=== PATIENT | female | born 1960 | race Caucasian/White ===

== ENCOUNTER → 2018-06-07 | Outpatient (CLI) | payer MEDICARE, OTHER ==
[~2018-06-07] MED LIST: ASPI81EC PO; Alpha Lipoic A100 MG PO; BUPR150ER PO; CEPH500 PO; Cerefolin Tabl1 EACH IM; Fish Oil500 M1 PO; HYDACE5 PO; IBUP800 PO; LEVSOD125 PO; LEVSOD137 PO; OXYB5 PO; Percocet 5-3251 EACH PO; RANI150 PO; REBIF REBI44 MCG/0.5 SQ; TYSABRI; Vitamin D2000 UNIT PO; [UNRECOGNIZED DRUG - OTHER]; [UNRECOGNIZED DRUG - OTHER] PO
[2018-06-07 10:58] LABS: Source, Urine Clean Catch
[2018-06-07 12:39] LABS: Appearance, Urine Hazy (Clear); Bilirubin, Urine Neg (Neg); Blood, Urine 1+ (Neg); Color, Urine Yellow (P-Yellow); Glucose Qualitative, Urine Neg (Neg); Ketones, Urine Neg (Neg); Leukocyte Esterase, Urine 3+ (Neg); Nitrite, Urine Neg (Neg); Protein, Urine Neg (Neg); Specific Gravity, Urine 1.015 (1.003-1.022); Urobilinogen, Urine NORM (Normal)
[2018-06-07 13:02] LABS: Bacteria Few /hpf; Red Blood Cells, Urine 0-2 /hpf (0-2); Squamous Epithelial Cells Mod /hpf (Few); White Blood Cells, Urine 25-50 /hpf (0-5)
[2018-06-07 13:04] LABS: Mucus Light (0-Heavy)
== END ==
LOC: LAB SHORT 10:57 → LAB 10:57 → LAB FUT 06-07 10:35 → EDSTATUS 06-07 10:35
PROVIDERS: Internal Medicine
DX: R30.0 Dysuria (principal)
CPT/HCPCS: 81001; 87086; 87147; 87184

== ENCOUNTER → 2018-10-12 | Outpatient (CLI) | payer MEDICARE, OTHER ==
[2018-10-13 15:06] LABS: HPV 16 Negative (Negative); HPV 18 Negative (Negative); HPV OTHER HR TYPES Negative (Negative)
== END | disposition home or self-care (01) ==
LOC: LAB 10:15 → LAB SHORT 10:15
PROVIDERS: Internal Medicine
DX: Z12.4 Encounter for screening for malignant neoplasm of cervix (principal)
CPT/HCPCS: 87624; G0145

== ENCOUNTER 2019-01-10 00:24 | Day surgery (SDC) | payer MEDICARE, OTHER ==
[2019-01-10] MEDS ORDERED: LEVOXYL88 MCG PO (17:02)
[2019-01-10] MEDS ORDERED: Fluvoxamine Ma100 MG PO (17:04)
[2019-01-10] MEDS ORDERED: VITAMIN D5000 UNI1 PO (17:32)
[2019-01-10] MEDS ORDERED: CYAN1000I IM (17:33)
[2019-01-10] MEDS ORDERED: CALCIUM PO (17:34)
[2019-01-10] MEDS ORDERED: THERA1 EACH PO (17:35)
== END 2019-01-10 16:15 | disposition home or self-care (01) ==
LOC: ATC 00:24
DX: G35 Multiple sclerosis (principal); E55.9 Vitamin D deficiency, unspecified; F32.9 Major depressive disorder, single episode, unspecified; Z79.899 Other long term (current) drug therapy; Z88.5 Allergy status to narcotic agent; Z88.2 Allergy status to sulfonamides; Z88.0 Allergy status to penicillin; Z88.8 Allergy status to other drugs, medicaments and biological substances; Z87.891 Personal history of nicotine dependence
CPT/HCPCS: 96365; J2930

== ENCOUNTER 2019-01-11 00:21 | Day surgery (SDC) | payer MEDICARE, OTHER ==
[~2019-01-11 00:21] MED LIST changes: +CALCIUM PO; +CYAN1000I IM; +Fluvoxamine Ma100 MG PO; +LEVOXYL88 MCG PO; +THERA1 EACH PO; +VITAMIN D5000 UNI1 PO
== END 2019-01-11 15:03 | disposition home or self-care (01) ==
LOC: ATC 00:21
DX: G35 Multiple sclerosis (principal); E55.9 Vitamin D deficiency, unspecified; Z79.899 Other long term (current) drug therapy; Z88.5 Allergy status to narcotic agent; Z88.2 Allergy status to sulfonamides; Z88.0 Allergy status to penicillin; Z88.8 Allergy status to other drugs, medicaments and biological substances; Z87.891 Personal history of nicotine dependence
CPT/HCPCS: 96365; J2930

== ENCOUNTER → 2019-11-01 | Outpatient (CLI) | payer MEDICARE, OTHER ==
[2019-11-01 08:05] LABS: Source, Urine Clean Catch
[2019-11-01 10:46] LABS: Bilirubin, Urine Neg (Neg); Blood, Urine 4+ (Neg); Glucose Qualitative, Urine Neg (Neg); Ketones, Urine Neg (Neg); Leukocyte Esterase, Urine 3+ (Neg); Nitrite, Urine Pos (Neg); Protein, Urine 2+ (Neg); Urobilinogen, Urine NORM (Normal)
[2019-11-01 11:46] LABS: Appearance, Urine Turbid (Clear); Color, Urine Yellow (P-Yellow)
[2019-11-01 11:50] LABS: White Blood Cells, Urine TNTC /hpf (0-5)
[2019-11-01 11:51] LABS: Bacteria Many /hpf; Squamous Epithelial Cells Rare /hpf (Few)
== END | disposition home or self-care (01) ==
LOC: LAB 08:04 → LAB SHORT 08:04 → LAB FUT 10-31 08:05
PROVIDERS: Internal Medicine
DX: N39.0 Urinary tract infection, site not specified (principal)
CPT/HCPCS: 81001

== ENCOUNTER → 2019-12-25 | Outpatient (CLI) | payer MEDICARE, OTHER ==
[2019-12-25 09:20] LABS: Source, Urine Clean Catch
[2019-12-25 10:24] LABS: Appearance, Urine Turbid (Clear); Bilirubin, Urine Neg (Neg); Blood, Urine 4+ (Neg); Color, Urine Yellow (P-Yellow); Glucose Qualitative, Urine Neg (Neg); Ketones, Urine Neg (Neg); Leukocyte Esterase, Urine 3+ (Neg); Nitrite, Urine Neg (Neg); Protein, Urine 2+ (Neg); Urobilinogen, Urine NORM (Normal)
[2019-12-25 10:36] LABS: White Blood Cells, Urine TNTC /hpf (0-5)
[2019-12-25 10:37] LABS: Bacteria Many /hpf; Squamous Epithelial Cells Rare /hpf (Few)
== END | disposition home or self-care (01) ==
LOC: LAB SHORT 09:14 → LAB 09:14
PROVIDERS: Internal Medicine
DX: N39.0 Urinary tract infection, site not specified (principal)
CPT/HCPCS: 81001; 87077; 87086; 87147; 87186

== ENCOUNTER → 2020-03-12 | Outpatient (CLI) | payer MEDICARE, OTHER ==
[2020-03-12 13:50] LABS: Source, Urine Clean Catch
[2020-03-12 17:32] LABS: Appearance, Urine Cloudy (Clear); Bilirubin, Urine Neg (Neg); Blood, Urine 3+ (Neg); Color, Urine Yellow (P-Yellow); Glucose Qualitative, Urine Neg (Neg); Ketones, Urine Neg (Neg); Leukocyte Esterase, Urine 3+ (Neg); Nitrite, Urine Pos (Neg); Protein, Urine 3+ (Neg); Urobilinogen, Urine NORM (Normal)
[2020-03-12 18:12] LABS: White Blood Cells, Urine 25-50 /hpf (0-5)
[2020-03-12 18:13] LABS: Bacteria Many /hpf; Red Blood Cells, Urine 25-50 /hpf (0-2); Squamous Epithelial Cells Rare /hpf (Few)
== END | disposition home or self-care (01) ==
LOC: LAB 09:15 → LAB SHORT 09:15
PROVIDERS: Internal Medicine
DX: R30.0 Dysuria (principal)
CPT/HCPCS: 81001; 87077; 87086; 87186

== ENCOUNTER → 2020-07-22 | Outpatient (CLI) | payer MEDICARE, OTHER ==
[2020-07-22 16:45] LABS: Appearance, Urine Cloudy (Clear); Bilirubin, Urine Neg (Neg); Blood, Urine 3+ (Neg); Color, Urine Yellow (P-Yellow); Glucose Qualitative, Urine Neg (Neg); Ketones, Urine Neg (Neg); Leukocyte Esterase, Urine 3+ (Neg); Nitrite, Urine Pos (Neg); Protein, Urine 3+ (Neg); Urobilinogen, Urine NORM (Normal)
[2020-07-22 17:03] LABS: Bacteria Many /hpf; Squamous Epithelial Cells Not Seen /hpf (Few); White Blood Cells, Urine TNTC /hpf (0-5)
== END | disposition home or self-care (01) ==
LOC: LAB SHORT 10:33 → LAB 10:33
PROVIDERS: Internal Medicine
DX: R30.0 Dysuria (principal)
CPT/HCPCS: 81001; 87077; 87086; 87186

== ENCOUNTER → 2020-12-13 | Outpatient (CLI) | payer MEDICARE, OTHER ==
[2020-12-14 07:09] LABS: IMMUNOGLOBULIN A, QN, SERUM 170 mg/dL (87-352); IMMUNOGLOBULIN G, QN, SERUM 486 mg/dL (586-1602); IMMUNOGLOBULIN M, QN, SERUM 22 mg/dL (26-217)
== END | disposition home or self-care (01) ==
LOC: LAB SHORT 11:44 → LAB 11:44
PROVIDERS: Psychiatry & Neurology Neurology
DX: G35 Multiple sclerosis (principal); N31.0 Uninhibited neuropathic bladder, not elsewhere classified; E55.9 Vitamin D deficiency, unspecified; R53.83 Other fatigue; R26.89 Other abnormalities of gait and mobility
CPT/HCPCS: 36415; 82784

== ENCOUNTER → 2021-04-24 | Outpatient (CLI) | payer MEDICARE, OTHER ==
[2021-04-25 08:11] LABS: IMMUNOGLOBULIN A, QN, SERUM 161 mg/dL (87-352); IMMUNOGLOBULIN G, QN, SERUM 487 mg/dL (586-1602); IMMUNOGLOBULIN M, QN, SERUM 21 mg/dL (26-217)
== END | disposition home or self-care (01) ==
LOC: LAB SHORT 09:49
PROVIDERS: Psychiatry & Neurology Neurology
DX: G35 Multiple sclerosis (principal)
CPT/HCPCS: 82784

== ENCOUNTER → 2022-01-23 | Outpatient (CLI) | payer MEDICARE, OTHER | END | disposition home or self-care (01) | LOC: LAB 09:57 → LAB SHORT 09:57 | DX: N39.0 Urinary tract infection, site not specified (principal) | CPT/HCPCS: 87086; 87147 ==

== ENCOUNTER → 2022-08-18 | Outpatient (CLI) | payer MEDICARE, OTHER ==
[2022-08-18 17:17] LABS: Body Fluid Crystals NEG (NEGATIVE)
[2022-08-18 17:39] LABS: RBC Count, Synovial Fluid 20000 /mm3 (0-0)
[2022-08-18 17:40] LABS: WBC Count, Synovial Fluid 6080 /mm3 (0-180)
[2022-08-18 19:43] LABS: Lymphs, Synovial Fluid 16 % (0-15); Monocytes/Macrophages, Synovia 12 % (0-65); Neutrophils, Synovial Fluid 72 % (0-24)
[2022-08-18 19:44] LABS: Appearance, Synovial Fluid Cloudy (Clear); Color, Synovial Fluid Dark Yellow (None-P Yel)
== END | disposition home or self-care (01) ==
LOC: LAB SHORT 16:00
PROVIDERS: Internal Medicine
DX: M25.562 Pain in left knee (principal); M25.462 Effusion, left knee
CPT/HCPCS: 89051; 89060

== ENCOUNTER → 2024-03-21 | Outpatient (CLI) | payer MEDICARE, OTHER ==
[~2024-03-21] MED LIST changes: +Acetaminophen650 M1 PO; +BACLOFEN5 M1 PO; +CELE100 PO; +IBUP400 PO; +OCRELIZUMAB IV; +PROBIOTICS1 EACH PO; +VITAMIN B121000 MCG PO
[2024-04-03 12:20] LABS: HPV SOURCE Not Provided
[2024-04-03 12:22] LABS: HPV HIGH RISK BY TMA Not Detected
== END ==
LOC: LAB 15:39 → LAB SHORT 15:39
PROVIDERS: Internal Medicine
DX: Z12.4 Encounter for screening for malignant neoplasm of cervix (principal)
CPT/HCPCS: 87624; G0123

== ENCOUNTER 2024-04-07 14:50 | Inpatient (IN) | payer MEDICARE, OTHER ==
[~2024-04-07] VITALS: Ht 162.6 cm; Wt 61.2 kg
[~2024-04-07 14:50] MED LIST changes: -BUPR150ER PO; +BUPROPION XL150 M1 PO; +EUTHYROX125 MCG PO; +Enoxaparin 40 MG/0.4 ML SYR SC SCH; -LEVOXYL88 MCG PO
[2024-04-07] MEDS ORDERED: Acetaminophen 325 MG TABLET PO ONE ×2 (16:20→16:50)
[2024-04-07 16:56] LABS: BASOPHILS ABSOLUTE AUTO 0.04 K/mm3 (0.00-0.23); BASOPHILS PERCENT AUTO 0 % (0-2); EOSINOPHILS ABSOLUTE AUTO 0.02 K/mm3 (0.00-0.68); EOSINOPHILS PERCENT AUTO 0 % (0-6); Hematocrit 36.1 % (33.0-51.0); Hemoglobin 13.1 g/dL (11.5-16.0); IMMATURE GRAN ABSOLUTE AUTO 0.06 K/mm3 (0.00-0.10); IMMATURE GRAN PERCENT AUTO 1 % (0-1); LYMPHOCYTES ABSOLUTE AUTO 0.46 K/mm3 (0.84-5.20); LYMPHOCYTES PERCENT AUTO 5 % (21-46); MONOCYTES ABSOLUTE AUTO 1.05 K/mm3 (0.16-1.47); MONOCYTES PERCENT AUTO 11 % (4-13); Mean Corpuscular HGB 32.6 pg (26.0-34.0); Mean Corpuscular HGB Conc 36.3 g/dL (31.5-36.5); Mean Corpuscular Volume 90 fL (80-100); Mean Platelet Volume 9.8 fL (9.1-12.4); NEUTROPHILS ABSOLUTE AUTO 8.21 K/mm3 (1.96-9.15); NEUTROPHILS PERCENT AUTO 83 % (41-73); Platelet Count 178 K/mm3 (150-400); RDW Coefficient Variation 12.1 % (11.7-14.2); RDW Standard Deviation 39.8 fL (35.1-46.3); Red Blood Cell Count 4.02 M/mm3 (3.80-5.20); White Blood Cell Count 9.84 K/mm3 (4.00-11.30)
[2024-04-07 17:12] LABS: Albumin, Blood 3.2 g/dL (3.4-5.0); Albumin/Globulin Ratio 1.2 (0.8-1.8); Bilirubin, Total 1.5 mg/dL (0.1-1.0); Bun/Creatinine Ratio 17.8 (12.0-20.0); Calcium, Blood 8.4 mg/dL (8.5-10.1); Creatinine, Blood 0.45 mg/dL (0.40-1.00); Globulin, Blood 2.7 g/dL (2.2-4.0); Potassium, Blood 2.9 mmol/L (3.5-5.5); Total Protein, Blood 5.9 g/dL (6.4-8.2)
[2024-04-07 17:41] LABS: Source, Urine Straight Cath
[2024-04-07 17:48] LABS: Appearance, Urine Hazy (Clear); Bilirubin, Urine Neg (Neg); Blood, Urine 2+ (Neg); Color, Urine Yellow (P-Yellow); Glucose Qualitative, Urine Neg (Neg); Ketones, Urine Neg (Neg); Leukocyte Esterase, Urine 3+ (Neg); Nitrite, Urine Pos (Neg); Protein, Urine 1+ (Neg); Urobilinogen, Urine NORM (Normal); pH, Urine 6.5 (5.0-8.0)
[2024-04-07 18:02] LABS: Bacteria Many /hpf; Squamous Epithelial Cells Few /hpf (Few); White Blood Cells, Urine 50-100 /hpf (0-5)
[2024-04-07] MEDS ORDERED: CefTRIAXone Sodium 1,000 MG in NS 100 ML IV ONE (18:05)
[2024-04-07] MEDS ORDERED: NS 1,000 ML IV SCH ×2 (18:30→23:10)
[2024-04-07 19:30] LABS: Influenza A, PCR NEGATIVE (NEGATIVE); Influenza B, PCR NEGATIVE (NEGATIVE); Resp Syncytial Virus, PCR NEGATIVE (NEGATIVE); SARS-Cov-2 (COVID-19) PCR, MMC NEGATIVE (NEGATIVE)
[2024-04-07] MEDS ORDERED: FLUVOXAMINE MA100 MG PO (22:31)
[2024-04-07] MEDS ORDERED: HYDROCODONE-AC1 EA19 PO (22:31)
[2024-04-07] MEDS ORDERED: OMEP20ER PO (22:33)
[2024-04-07] MEDS ORDERED: MODAFINIL100 M4 PO (22:34)
[2024-04-07] MEDS ORDERED: ESTRADIOL42.5 GM VAG (22:35)
[2024-04-07 22:44] VITALS: BP 152/73
[2024-04-07] MEDS ORDERED: Ondansetron HCl 2 MG / ML 2ML Vial IV PRN (23:10)
[2024-04-07] MEDS ORDERED: FLU VACC TS2024-25(6MOS UP)/PF 45 MCG/0.5 ML SYRINGE IM ONE (23:10)
[2024-04-07] MEDS ORDERED: Acetaminophen 325 MG TABLET PO PRN (23:15)
[2024-04-07] MEDS ORDERED: Potassium Chl 20MEQ/Water100ML 100 ML IV SCH (23:20)
[2024-04-07 23:48] LABS: Magnesium, Blood 1.5 mg/dL (1.6-2.4); Phosphorus, Blood 2.3 mg/dL (2.5-4.9)
[2024-04-08] MEDS ORDERED: Magnesium Sulf 2 GM/Water 50ML 50 ML IV STA (00:55)
[2024-04-08] MEDS ORDERED: Potassium Phosphate Dibasic 20 MM in Dextrose 5% 500 ML IV STA (00:57)
--- NOTE | 2024-04-08 01:26 | NUR ---
THIS BREAK NURSE RECEIVED A T-ORDER FROM ON-CALL HOSPITALIST : STRAIGHT CATH NOW, AND RE-BLADDER SCAN IN 6HRS. ORDER ENTERED TO [facility] [employer]. INTERVENTIONAL RADIOLOGIST NURSE NOTIFIED. PT STRAIGHT CATHS AT HOME 3-4 XDAY. PT REPORTS STRAIGHT CATHING FOR >3YRS. BLADDER SCAN WAS DONE PRIOR CONTACTING THE PROVIDER, PT UNABLE TO VOID ON A BEDPAN. BLADDER SCAN AFTER ATTEMPT TO URINATE:727MLS.
--- NOTE | 2024-04-08 02:40 | NUR ---
STRAIGHT CATH DONE @ 0200. 800 ML OF YELLOW URINE COLLECTED.
--- NOTE | 2024-04-08 03:47 | NUR ---
@9489 by the bedside.
--- NOTE | 2024-04-08 05:01 | NUR ---
SHIFT SUMMARY 63 YR F ADMITTED THIS SHIFT FOR UTI. FULL CODE. NO ACUTE CHANGES THIS SHIFT. PT IS A&O X 4, PLEASANT, AND COOPERATIVE WITH CARE. SHE IS CURRENTLY RECEIVING IV POTASSIUM, SODIUM, AND MAGNESIUM. PT HAS A HX OF MS AND AMBULATES W/ A FWW AT BASELINE. HOWEVER, SHE IS UNABLE TO AMBULATE AT THIS TIME DUE TO WEAKNESS. PT HAS SEVERE URINARY RETENTION AND SELF CATHS 3 X DAILY AT BASELINE. BLADDER SCAN THIS SHIFT SHOWED >700 AND STRAIGHT CATH YEILDED 800 ML OF YELLOW URINE. PT STATES SHE CAN FEEL WHEN SHE NEEDS TO BE CATHED AND IT BECOMES UNCOMFORTABLE FOR HER. BED IN LOW POSITION AND CALL LIGHT IN REACH.
[2024-04-08 05:20] LABS: BASOPHILS ABSOLUTE AUTO 0.04 K/mm3 (0.00-0.23); BASOPHILS PERCENT AUTO 1 % (0-2); EOSINOPHILS ABSOLUTE AUTO 0.02 K/mm3 (0.00-0.68); EOSINOPHILS PERCENT AUTO 0 % (0-6); Hematocrit 33.5 % (33.0-51.0); Hemoglobin 11.9 g/dL (11.5-16.0); IMMATURE GRAN ABSOLUTE AUTO 0.04 K/mm3 (0.00-0.10); IMMATURE GRAN PERCENT AUTO 1 % (0-1); LYMPHOCYTES ABSOLUTE AUTO 0.98 K/mm3 (0.84-5.20); LYMPHOCYTES PERCENT AUTO 12 % (21-46); MONOCYTES ABSOLUTE AUTO 0.94 K/mm3 (0.16-1.47); MONOCYTES PERCENT AUTO 11 % (4-13); Mean Corpuscular HGB 32.5 pg (26.0-34.0); Mean Corpuscular HGB Conc 35.5 g/dL (31.5-36.5); Mean Corpuscular Volume 92 fL (80-100); Mean Platelet Volume 10.6 fL (9.1-12.4); NEUTROPHILS ABSOLUTE AUTO 6.39 K/mm3 (1.96-9.15); NEUTROPHILS PERCENT AUTO 76 % (41-73); Platelet Count 155 K/mm3 (150-400); RDW Coefficient Variation 12.1 % (11.7-14.2); RDW Standard Deviation 40.6 fL (35.1-46.3); Red Blood Cell Count 3.66 M/mm3 (3.80-5.20); White Blood Cell Count 8.41 K/mm3 (4.00-11.30)
[2024-04-08 05:51] LABS: Albumin, Blood 2.7 g/dL (3.4-5.0); Albumin/Globulin Ratio 1.1 (0.8-1.8); Bilirubin, Total 1.1 mg/dL (0.1-1.0); Bun/Creatinine Ratio 16.1 (12.0-20.0); Calcium, Blood 8.2 mg/dL (8.5-10.1); Creatinine, Blood 0.44 mg/dL (0.40-1.00); Globulin, Blood 2.4 g/dL (2.2-4.0); Potassium, Blood 3.1 mmol/L (3.5-5.5); Total Protein, Blood 5.1 g/dL (6.4-8.2)
[2024-04-08 05:53] VITALS: BP 143/75
[2024-04-08 08:08] VITALS: BP 146/74
[2024-04-08] MEDS ORDERED: HYDROCODONE-AC1 EA10 PO (09:32)
[2024-04-08] MEDS ORDERED: OCREVUS ZUNOVO23 ML IV (09:34)
[2024-04-08] MEDS ORDERED: Baclofen 10 MG Tab PO PRN (09:35)
[2024-04-08] MEDS ORDERED: CELEBREX200 MG PO (09:58)
[2024-04-08] MEDS ORDERED: Calcium Carbonate 500 MG Tab Chew PO SCH (10:09)
[2024-04-08] MEDS ORDERED: Levothyroxine Sodium 0.125 MG Tab PO SCH (10:10)
[2024-04-08] MEDS ORDERED: Multivitamins 1 Tab PO SCH (10:11)
[2024-04-08] MEDS ORDERED: Omeprazole 20 MG CapCR PO SCH (10:13)
[2024-04-08] MEDS ORDERED: Cholecalciferol 1000 Unit Tablet (=25MCG) PO SCH (10:13)
[2024-04-08] MEDS ORDERED: buPROPion HCL 150 MG TAB.SR.12H PO SCH (11:03)
[2024-04-08] MEDS ORDERED: Modafinil 200 MG Tab PO SCH (11:05)
[2024-04-08] MEDS ORDERED: Modafinil 200 MG Tab PO PRN (11:10)
[2024-04-08] MEDS ORDERED: FLUVOXAMINE 100 MG PO SCH (11:13)
[2024-04-08 11:49] LABS: Bun/Creatinine Ratio 17.4 (12.0-20.0); Calcium, Blood 8.4 mg/dL (8.5-10.1); Creatinine, Blood 0.46 mg/dL (0.40-1.00); Magnesium, Blood 2.2 mg/dL (1.6-2.4); Phosphorus, Blood 3.2 mg/dL (2.5-4.9); Potassium, Blood 3.3 mmol/L (3.5-5.5)
[2024-04-08] MEDS ORDERED: Potassium Chloride 20 MEQ TabCR PO ONE (14:00)
--- NOTE | 2024-04-08 15:07 | NUR ---
PHYSICIAN CONTACT INTERRUPTED PATIENT DRINKING FIREBALL WHISKEY. PATIENT IN ROOM, ADMITTED TO BRINGING IN TO HER. BOTH WERE EDUCATED ON THE RISKS OF CONSUMING ALCOHOL WHILE HOSPITALIZED AND EDUCATED IT WAS AGAINST POLICY TO ALLOW SUBSTANCES ON PROPERTY. WAS MADE AWARE THAT IF IT HAPPENED AGAIN HE WOULD BE ESCORTED OUT BY SECURTIY AND WOULDN'T BE ALLOWED BACK DURING THIS HOSPITALIZATION. PATIENT APOLOGIZED AND BOTH STATED THERE WAS NO MORE ALCOHOL PRESENT AND THAT SHE HAD ONLY DRANK THE ONE 50ML BOTTLE. CHARGES MADE AWARE, DOC MADE AWARE. DOC STATED TO MONITOR FOR ALCOHOL WITHDRAWL SYMPTOMS AND IF THERE WAS A CONCERN TO IMPLEMENT CIWA PROTOCOL. NO CHANGE TO PATIENT MENTATION AT THIS TIME.
[2024-04-08 15:27] VITALS: BP 121/85
--- NOTE | 2024-04-08 15:51 | NUR ---
SHIFT SUMMARY PATIENT ABLE TO AMBULATE TO BATHROOM THIS SHIFT, STRAIGHT CATHING SELF SEVERAL TIMES. CLARIFIED ORDER WITH DR GARCIA THIS IS HER NORMAL NEED, DOC STATED CONTINUE TO FOLLOW ORDER AND PLACE HENDRIX IF NEEEDED. PATIENT MADE AWARE AND IS AGREEABLE TO THIS PLAN. CONTINUING TO MONITOR PATIENT FOR ALCOHOL USE, SEE PREVIOUS NOTE. A/O X4. ABLE TO MAKE NEEDS KNOWN. CALL LIGHT IN REACH, CARES ONGOING.
[2024-04-08] MEDS ORDERED: CefTRIAXone Sodium 1,000 MG in NS 100 ML IV SCH (18:00)
[2024-04-08 19:51] VITALS: BP 134/81
[2024-04-08] MEDS ORDERED: Lactobacil 2-S.Thermo-Bifido 1 1 Cap PO SCH (21:00)
[2024-04-08] MEDS ORDERED: Celecoxib 100 MG Cap PO SCH (21:00)
[2024-04-09 04:21] VITALS: BP 126/74
--- NOTE | 2024-04-09 04:36 | NUR ---
SHIFT SUMMARY 63 YR F ADMITTED ON 04/07/24. FULL CODE. NO ACUTE CHANGES THIS SHIFT. PT HAS SHOWN NO SIGNS OF ALCOHOL WITHDRAWL. HENDRIX IS PATENT AND DRAINING WELL TO GRAVITY. PT YIELDED 100 ML YELLOW URINE THROUGHOUT THE NIGHT. SHE APPEARS TO HAVE SLEPT COMFORTABLY FOR MOST OF THE NIGHT. NO C/O PAIN OR DISCOMFORT THIS SHIFT. BED IN LOW POSITION AND CALL LIGHT IN REACH.
[2024-04-09 06:10] LABS: BASOPHILS ABSOLUTE AUTO 0.03 K/mm3 (0.00-0.23); BASOPHILS PERCENT AUTO 0 % (0-2); EOSINOPHILS ABSOLUTE AUTO 0.16 K/mm3 (0.00-0.68); EOSINOPHILS PERCENT AUTO 2 % (0-6); Hematocrit 34.4 % (33.0-51.0); IMMATURE GRAN ABSOLUTE AUTO 0.05 K/mm3 (0.00-0.10); IMMATURE GRAN PERCENT AUTO 1 % (0-1); LYMPHOCYTES ABSOLUTE AUTO 1.09 K/mm3 (0.84-5.20); LYMPHOCYTES PERCENT AUTO 14 % (21-46); MONOCYTES ABSOLUTE AUTO 1.18 K/mm3 (0.16-1.47); MONOCYTES PERCENT AUTO 15 % (4-13); Mean Corpuscular HGB 32.5 pg (26.0-34.0); Mean Corpuscular HGB Conc 34.9 g/dL (31.5-36.5); Mean Corpuscular Volume 93 fL (80-100); Mean Platelet Volume 10.7 fL (9.1-12.4); NEUTROPHILS ABSOLUTE AUTO 5.44 K/mm3 (1.96-9.15); NEUTROPHILS PERCENT AUTO 69 % (41-73); Platelet Count 147 K/mm3 (150-400); RDW Coefficient Variation 12.3 % (11.7-14.2); RDW Standard Deviation 41.8 fL (35.1-46.3); Red Blood Cell Count 3.69 M/mm3 (3.80-5.20); White Blood Cell Count 7.95 K/mm3 (4.00-11.30)
[2024-04-09 06:40] LABS: Albumin, Blood 2.8 g/dL (3.4-5.0); Bilirubin, Total 0.7 mg/dL (0.1-1.0); Bun/Creatinine Ratio 13.5 (12.0-20.0); Calcium, Blood 8.6 mg/dL (8.5-10.1); Creatinine, Blood 0.52 mg/dL (0.40-1.00); Globulin, Blood 2.9 g/dL (2.2-4.0); Magnesium, Blood 2.1 mg/dL (1.6-2.4); Potassium, Blood 3.3 mmol/L (3.5-5.5); Total Protein, Blood 5.7 g/dL (6.4-8.2)
[2024-04-09 07:40] VITALS: BP 126/89
[2024-04-09] MEDS ORDERED: CEPH500 PO (12:21)
--- NOTE | 2024-04-09 13:33 | NUR ---
DISCHARGE SUMMARY DISCHARGE PACKET GIVEN AND REVIEWED, QUESTIONS ANSWERED, VERBALIZED UNDERSTANDING. ABX ADMINISTERED EARLY PER DR GUILLEN REQUEST. MEDS FAXED TO [facility]. NO HOME MEDS TO RETURN. HENDRIX REMOVED WITHOUT COMPLICATION. IV REMOVED WITHOUT COMPLICATION. TO DRIVE HOME.
--- NOTE | 2024-04-09 14:48 | NUR ---
discharged to home with
== END 2024-04-09 14:48 | disposition home or self-care (01) | DRG 698 ==
LOC: ER 14:50 → ERHOLD 14:51 → MEDS 14:51
PROVIDERS: Emergency Medicine; Student in an Organized Health Care Education/Training Program; ADMIT Internal Medicine
DX: T83.518A Infection and inflammatory reaction due to other urinary catheter, initial encounter (principal); A41.51 Sepsis due to Escherichia coli [E. coli]; Y84.6 Urinary catheterization as the cause of abnormal reaction of the patient, or of later complication, without mention of misadventure at the time of the procedure; E87.6 Hypokalemia; E83.42 Hypomagnesemia; G35 Multiple sclerosis; E83.39 Other disorders of phosphorus metabolism; R33.9 Retention of urine, unspecified; E89.0 Postprocedural hypothyroidism; Z88.0 Allergy status to penicillin; Z88.2 Allergy status to sulfonamides; Z88.5 Allergy status to narcotic agent; Z85.850 Personal history of malignant neoplasm of thyroid; Z88.8 Allergy status to other drugs, medicaments and biological substances; Z79.890 Hormone replacement therapy; Z79.899 Other long term (current) drug therapy; Z90.89 Acquired absence of other organs; Z98.890 Other specified postprocedural states
CPT/HCPCS: 0241U; 36415; 51701; 71046; 80048; 80053; 81001; 83605; 83735; 83880; 84100; 85025; 87040; 87077; 87086; 87186; 96365; 97110; 97161; 99285-25; A9270; G0378; J0696; J1650; J3475; J3480; J7030; J7060; P9612

== ENCOUNTER → 2024-06-14 | Outpatient (CLI) | payer MEDICARE, OTHER ==
[~2024-06-14] MED LIST changes: +ASPI81CH PO; +CELEBREX200 MG PO; +ESTRADIOL42.5 GM VAG; -Enoxaparin 40 MG/0.4 ML SYR SC SCH; +FLUVOXAMINE MA100 MG PO; +HYDROCODONE-AC1 EA10 PO; +HYDROCODONE-AC1 EA19 PO; +MODAFINIL100 M4 PO; +MUPIROCIN111 TP; +NYSTRIT TOP; +OCREVUS ZUNOVO23 ML; +OCREVUS ZUNOVO23 ML IV; +OMEP20ER PO
[2024-06-14 14:38] LABS: Source, Urine Clean Catch
[2024-06-14 16:17] LABS: Appearance, Urine Cloudy (Clear); Bilirubin, Urine Neg (Neg); Blood, Urine 2+ (Neg); Color, Urine Yellow (P-Yellow); Glucose Qualitative, Urine Neg (Neg); Ketones, Urine Neg (Neg); Leukocyte Esterase, Urine 3+ (Neg); Nitrite, Urine Pos (Neg); Protein, Urine 1+ (Neg); Urobilinogen, Urine NORM (Normal)
[2024-06-14 16:24] LABS: White Blood Cells, Urine TNTC /hpf (0-5)
[2024-06-14 16:30] LABS: Bacteria Many /hpf; Squamous Epithelial Cells Many /hpf (Few)
[2024-06-14 16:32] LABS: Transitional Epithelial Cells Rare /hpf (0-Rare)
== END ==
LOC: LAB SHORT 14:35 → LAB 14:35
PROVIDERS: Internal Medicine
DX: N39.0 Urinary tract infection, site not specified (principal)
CPT/HCPCS: 81001; 87077; 87086; 87186

== ENCOUNTER 2024-06-21 06:24 | Day surgery (SDC) | payer MEDICARE, OTHER ==
[~2024-06-21] VITALS: Ht 162.6 cm; Wt 62.7 kg
[2024-06-21] VITALS (12 sets, daily range): BP systolic 138–166; BP diastolic 67–88
[~2024-06-21 06:24] MED LIST changes: +CeFAZolin Sodium 2,000 MG in NS 100 ML IV SCH; +Lactated Ringer's 1,000 ML IV SCH
[2024-06-21] MEDS ORDERED: Tranexamic Acid 100 ML IV ONE (06:25)
[2024-06-21] MEDS ORDERED: Keflex250 MG (06:45)
[2024-06-21] MEDS ORDERED: CELE400 PO (06:45)
[2024-06-21] MEDS ORDERED: CeFAZolin Sodium 2,000 MG VIAL ONE (06:54)
[2024-06-21] MEDS ORDERED: Acetaminophen 500 MG Tab PO ONE (07:10)
[2024-06-21] MEDS ORDERED: Midazolam HCl 1MG / ML 2ML Vial IV ONE (07:10)
--- NOTE | 2024-06-21 07:42 | NUR ---
0720 TIME OUT PREFORMED W/ ANESTHESIOLOGIST FOR LEFT INTERSCALENE NERVE BLOCK. 1 MG IVP VERSED PER DR ORDERS GIVEN. BP 130/72 HR 78 SA02=99% ON RA
--- NOTE | 2024-06-21 07:43 | NUR ---
Ambulatory in Day Surgery W/ ASSIST FROM [facility]. Patient confirms NPO status and agrees with scheduled surgery. Pre-Op teaching done. Pt verbalizes understanding. History, Chart, Medications and Allergies reviewed before start of procedure.Patient States Post-Procedure ride home has been arranged.
--- NOTE | 2024-06-21 07:44 | NUR ---
Patient reports completing Chlorhexadine shower X2 prior to admission to hospital.
--- NOTE | 2024-06-21 07:46 | NUR ---
PT'S GLASSES PLACED IN PACU. UP/LOW DENTURES REMAIN IN PT'S MOUTH AT THIS TIME
--- NOTE | 2024-06-21 09:14 | NUR ---
06/21/24 0914 Malina Rodríguez PATIENT ARRIVED TO OR WITH BRUSING ON CHIN AND UNDER RIGHT BREAST. PATIENT ALSO ARRIVED TO OR WITH BANDAGE ON LEFT ROMANO.
[2024-06-21] MEDS ORDERED: EPINEPhrine HCl 1 MG / ML 30ML Vial ONE (09:54)
[2024-06-21] MEDS ORDERED: OxyCODONE HCL 5 MG TAB PO PRN (11:45)
--- NOTE | 2024-06-21 13:14 | NUR ---
Patient up to Ambulate independently. Gait steady. Discharge instructions reviewed with patient. Patient verbalizes understanding. Copy given to patient to take home. Dressing to procedure site clean, dry, intact with no visible drainage, swelling, erythema or bruising noted. Patient States Post-Procedure ride home has been arranged.SHOULDER IMMOBILIZER IN PLACE. POLAR PACK INSTRUCTIONS PROVIDED. CAN WIGGLE FINGERS. CIRC INTACT. ALL BELONINGS SENT HOME WITH PT, DENTURES IN PLACE, GLASSES PROVIDED. HAD CANE
== END 2024-06-21 23:00 | disposition home or self-care (01) ==
LOC: ORSCMMR 06:24 → ORD 07:30 → ORSCMMR 07:30
PROVIDERS: Orthopaedic Surgery Sports Medicine
PROC: 0LM24ZZ Reattachment of Left Shoulder Tendon, Percutaneous Endoscopic Approach (ICD-10-PCS; principal; 2024-06-21 07:30)
PROC: 0RNK4ZZ Release Left Shoulder Joint, Percutaneous Endoscopic Approach (ICD-10-PCS; principal; 2024-06-21 07:30)
DX: M75.102 Unspecified rotator cuff tear or rupture of left shoulder, not specified as traumatic (principal); G35 Multiple sclerosis; Z79.899 Other long term (current) drug therapy
CPT/HCPCS: C1713; J0171; J0690; J2250; J7120

== ENCOUNTER 2025-01-30 08:17 | Day surgery (SDC) | payer MEDICARE, OTHER ==
[~2025-01-30] VITALS: Ht 162.6 cm; Wt 59.8 kg
[~2025-01-30 08:17] MED LIST changes: +CELE400 PO; -CeFAZolin Sodium 2,000 MG in NS 100 ML IV SCH; +Keflex250 MG; -Lactated Ringer's 1,000 ML IV SCH
[2025-01-30] MEDS ORDERED: CENTRUM SILVER1 EAC2 (08:40)
[2025-01-30] MEDS ORDERED: FERSU300 (08:40)
[2025-01-30] MEDS ORDERED: CALCIUM CARBON500 M1 (08:41)
[2025-01-30] MEDS ORDERED: FOLI1 (08:41)
[2025-01-30 10:42] VITALS: BP 142/80
== END 2025-01-30 10:41 | disposition home or self-care (01) ==
LOC: ORSCSDS 08:17
PROVIDERS: Internal Medicine Gastroenterology
PROC: 0DB58ZX Excision of Esophagus, Via Natural or Artificial Opening Endoscopic, Diagnostic (ICD-10-PCS; principal; 2025-01-30 09:45)
DX: R13.10 Dysphagia, unspecified (principal); K20.0 Eosinophilic esophagitis; K44.9 Diaphragmatic hernia without obstruction or gangrene; R10.13 Epigastric pain; G35 Multiple sclerosis; Z79.899 Other long term (current) drug therapy; Z87.891 Personal history of nicotine dependence
CPT/HCPCS: 88305; J2704; J7120

== ENCOUNTER 2025-03-29 01:43 | Emergency (ER) | payer MEDICARE, OTHER ==
[~2025-03-29] VITALS: Ht 162.6 cm; Wt 59.0 kg
[~2025-03-29 01:43] MED LIST changes: +CALCIUM CARBON500 M1; +CELE200 PO; -CELE400 PO; +CENTRUM SILVER1 EAC2; -EUTHYROX125 MCG PO; +Estrace Vagin42.5 GM VAG; +FERSU300 PO; +FOLI1; +FOLI1 PO; -HYDROCODONE-AC1 EA10 PO; +LEVSOD112 PO; +MULVITA PO; +Norco 5-325 Ta1 EACH PO; +PROBIOTIC WOME1 EACH PO
[2025-03-29 02:22] LABS: BASOPHILS ABSOLUTE AUTO 0.08 K/mm3 (0.00-0.23); BASOPHILS PERCENT AUTO 1 % (0-2); EOSINOPHILS ABSOLUTE AUTO 0.87 K/mm3 (0.00-0.68); EOSINOPHILS PERCENT AUTO 7 % (0-6); Hematocrit 26.5 % (33.0-51.0); Hemoglobin 9.2 g/dL (11.5-16.0); IMMATURE GRAN ABSOLUTE AUTO 0.33 K/mm3 (0.00-0.10); IMMATURE GRAN PERCENT AUTO 3 % (0-1); LYMPHOCYTES ABSOLUTE AUTO 2.42 K/mm3 (0.84-5.20); LYMPHOCYTES PERCENT AUTO 19 % (21-46); MONOCYTES ABSOLUTE AUTO 1.34 K/mm3 (0.16-1.47); MONOCYTES PERCENT AUTO 11 % (4-13); Mean Corpuscular HGB Conc 34.7 g/dL (31.5-36.5); Mean Corpuscular Volume 94 fL (80-100); NEUTROPHILS ABSOLUTE AUTO 7.67 K/mm3 (1.96-9.15); NEUTROPHILS PERCENT AUTO 61 % (41-73); NRBC ABSOLUTE 0.00 K/mm3 (0.00-0.02); NRBC Auto 0.0 /100 WBC (0.0-0.2); Platelet Count 344 K/mm3 (150-400); RDW Coefficient Variation 13.0 % (11.7-14.2); RDW Standard Deviation 43.7 fL (35.1-46.3)
[2025-03-29 02:27] LABS: Prothrombin Time Results 10.3 Sec (9.7-11.5)
[2025-03-29 02:40] LABS: Alanine Aminotransfer (ALT/SGP 24.0 U/L (12-78); Albumin, Blood 3.1 g/dL (3.4-5.0); Albumin/Globulin Ratio 1.0 (0.8-1.8); Anion Gap 10.0 mmol/L (3-11); Aspartate Aminotrans (AST/SGOT 20.0 U/L (12-37); Bilirubin, Total 0.8 mg/dL (0.1-1.0); Blood Urea Nitrogen 12.0 mg/dL (8-24); CO2, Blood 27.0 mmol/L (21-32); Calcium, Blood 9.0 mg/dL (8.5-10.1); Chloride, Blood 103.0 mmol/L (98-108); Creatinine, Blood 0.56 mg/dL (0.40-1.00); Globulin, Blood 3.2 g/dL (2.2-4.0); Glucose, Blood 118.0 mg/dL (70-99); Potassium, Blood 2.9 mmol/L (3.5-5.5); Sodium, Blood 137.0 mmol/L (136-145); Total Protein, Blood 6.3 g/dL (6.4-8.2)
[2025-03-29 03:00] VITALS: BP 137/65
== END 2025-03-29 04:30 | disposition home or self-care (01) ==
LOC: ER 01:43
PROVIDERS: Emergency Medicine
DX: S01.112A Laceration without foreign body of left eyelid and periocular area, initial encounter (principal); S20.212A Contusion of left front wall of thorax, initial encounter; S50.12XA Contusion of left forearm, initial encounter; Z88.0 Allergy status to penicillin; Z88.2 Allergy status to sulfonamides; Z88.8 Allergy status to other drugs, medicaments and biological substances; Z79.899 Other long term (current) drug therapy; W18.30XA Fall on same level, unspecified, initial encounter
CPT/HCPCS: 70450; 71260; 72125; 73030; 73090; 74177; 80053; 85025; 85610; 99284-25; Q9967